=== PATIENT | female | born 1980 | race Hispanic/Latino ===

== ENCOUNTER 2025-05-14 19:40 | Inpatient (IN) | payer OTHER ==
[~2025-05-14] VITALS: Ht 157.5 cm; Wt 95.3 kg
[2025-05-14 20:16] LABS: BASOPHILS % 0.6 % (0.0-1.0); EOSINOPHILS # (AUTO) 0.2 (0.0-0.4); EOSINOPHILS % 2.8 % (0.0-6.0); HEMATOCRIT 42.7 % (34.2-44.1); HEMOGLOBIN 13.9 g/dL (12.0-16.0); LYMPHOCYTES # (AUTO) 2.1 (1.0-3.2); LYMPHOCYTES % 30.6 % (18.0-39.1); MEAN CORPUSCULAR HEMOGLOBIN 28.1 pg (28-32); MEAN CORPUSCULAR HGB CONC 32.6 g/dL (31-35); MEAN CORPUSCULAR VOLUME 86.3 fL (81-99); MONOCYTES # (AUTO) 0.5 (0.2-0.8); MONOCYTES % 7.4 % (4.4-11.3); NEUTROPHILS # (AUTO) 3.9 (2.1-6.9); PLATELET COUNT 307 x10e3/uL (140-360); RED BLOOD COUNT 4.95 x10e6/uL (3.6-5.1); RED CELL DISTRIBUTION WIDTH 13.1 % (11.7-14.4); WHITE BLOOD COUNT 6.73 x10e3/uL (4.8-10.8)
[2025-05-14] MEDS: ASPIRIN 81 MG CHEW TAB PO ONE (20:28)
[2025-05-14] MEDS: KETOROLAC TROMETHAMINE 30 MG/ML VIAL IV STA (20:28)
[2025-05-14 20:42] LABS: ALANINE AMINOTRANSFERASE 33 IU/L (0-55); ALBUMIN 4.2 g/dL (3.5-5.0); ALKALINE PHOSPHATASE 79 IU/L (40-150); ANION GAP 15.8 mmol/L (8-16); BILIRUBIN,TOTAL 0.4 mg/dL (0.2-1.2); BLOOD UREA NITROGEN 13 mg/dL (7-26); BUN/CREATININE RATIO 18 (6-25); CALCIUM 9.5 mg/dL (8.4-10.2); CARBON DIOXIDE 23 mmol/L (22-29); CHLORIDE 102 mmol/L (98-107); CREATINE KINASE 100 IU/L (29-168); CREATININE, SERUM 0.74 mg/dL (0.57-1.11); EST GLOMERULAR FILTRATION RATE 102 ML/MIN (>=60); GLUCOSE 168 mg/dL (74-118); POTASSIUM 3.8 mmol/L (3.5-5.1); SODIUM 137 mmol/L (136-145); TOTAL PROTEIN 8.3 g/dL (6.5-8.1)
[2025-05-14 20:48] LABS: TROPONIN I < 0.001 ng/mL (0-0.300)
[2025-05-14] MEDS ORDERED: IOPAMIDOL 370 MG/ML 100 ML INFUS..BTL INJ ONE (22:34)
[2025-05-14 22:52] VITALS: PULSE 78; RESP 18; TEMP 98.1
[2025-05-14] MEDS: SODIUM CHLORIDE 0.9% 1000ML 1,000 ML IV SCH (23:00)
[2025-05-14] MEDS ORDERED: GLIPIZIDE5 MG PO (23:30)
[2025-05-14] MEDS ORDERED: VALACYCLOVIR500 MG PO (23:30)
[2025-05-14] MEDS ORDERED: MOUNJARO5 MG/0.5 M SC (23:30)
[2025-05-14] MEDS ORDERED: VITAMIN D3 COM1 EACH PO (23:30)
[2025-05-14] MEDS ORDERED: TIZANIDINE HCL4 MG PO (23:30)
[2025-05-14 23:31] VITALS: BP 154/112; PULSE 86; RESP 18; TEMP 98.5; O2SAT 100
[2025-05-14 23:35] VITALS: BP 154/112; PULSE 86; RESP 18; TEMP 98.5; O2SAT 100
[2025-05-15] VITALS (9 sets, daily range): BP systolic 137–182; BP diastolic 70–98; PULSE 75–98; RESP 17–18; TEMP 97.7–98.6; O2SAT 96–100
[2025-05-15 05:39] LABS: BASOPHILS % 0.4 % (0.0-1.0); EOSINOPHILS # (AUTO) 0.2 (0.0-0.4); EOSINOPHILS % 2.5 % (0.0-6.0); HEMATOCRIT 39.3 % (34.2-44.1); HEMOGLOBIN 12.8 g/dL (12.0-16.0); LYMPHOCYTES # (AUTO) 2.1 (1.0-3.2); LYMPHOCYTES % 29.4 % (18.0-39.1); MEAN CORPUSCULAR HEMOGLOBIN 28.3 pg (28-32); MEAN CORPUSCULAR HGB CONC 32.6 g/dL (31-35); MEAN CORPUSCULAR VOLUME 86.8 fL (81-99); MONOCYTES # (AUTO) 0.6 (0.2-0.8); MONOCYTES % 8.2 % (4.4-11.3); NEUTROPHILS # (AUTO) 4.3 (2.1-6.9); NEUTROPHILS % 59.2 % (38.7-80.0); PLATELET COUNT 275 x10e3/uL (140-360); RED BLOOD COUNT 4.53 x10e6/uL (3.6-5.1); RED CELL DISTRIBUTION WIDTH 13.1 % (11.7-14.4); WHITE BLOOD COUNT 7.18 x10e3/uL (4.8-10.8)
[2025-05-15 05:53] LABS: ALBUMIN 3.5 g/dL (3.5-5.0); ALBUMIN/GLOBULIN RATIO 1.2 (0.8-2.0); ANION GAP 15.6 mmol/L (8-16); BILIRUBIN,TOTAL 0.5 mg/dL (0.2-1.2); CALCIUM 8.7 mg/dL (8.4-10.2); CREATININE, SERUM 0.65 mg/dL (0.57-1.11); POTASSIUM 3.6 mmol/L (3.5-5.1); TOTAL PROTEIN 6.4 g/dL (6.5-8.1)
[2025-05-15] MEDS: ONDANSETRON HCL INJ 2MG/ML 2ML 2 MG/ML VIAL IV PRN (09:31)
[2025-05-15] MEDS: Morphine 4mg INJECTION 4 MG/ML INJ IV PRN (09:31)
[2025-05-15] MEDS: KETOROLAC TROMETHAMINE 30 MG/ML VIAL IV PRN (10:35)
[2025-05-15] MEDS ORDERED: GADOBENATE DIMEGLUMINE 1 ML IV ONE (12:12)
[2025-05-16] VITALS (8 sets, daily range): BP systolic 139–195; BP diastolic 67–98; PULSE 77–95; RESP 18–20; TEMP 97.8–98.6; O2SAT 98–100
[2025-05-16 05:36] LABS: BASOPHILS % 0.6 % (0.0-1.0); EOSINOPHILS # (AUTO) 0.2 (0.0-0.4); EOSINOPHILS % 3.4 % (0.0-6.0); HEMATOCRIT 38.5 % (34.2-44.1); HEMOGLOBIN 12.4 g/dL (12.0-16.0); LYMPHOCYTES # (AUTO) 1.5 (1.0-3.2); LYMPHOCYTES % 27.8 % (18.0-39.1); MEAN CORPUSCULAR HEMOGLOBIN 28.6 pg (28-32); MEAN CORPUSCULAR HGB CONC 32.2 g/dL (31-35); MEAN CORPUSCULAR VOLUME 88.7 fL (81-99); MONOCYTES # (AUTO) 0.5 (0.2-0.8); MONOCYTES % 8.7 % (4.4-11.3); NEUTROPHILS # (AUTO) 3.1 (2.1-6.9); NEUTROPHILS % 59.1 % (38.7-80.0); PLATELET COUNT 258 x10e3/uL (140-360); RED BLOOD COUNT 4.34 x10e6/uL (3.6-5.1); RED CELL DISTRIBUTION WIDTH 12.9 % (11.7-14.4); WHITE BLOOD COUNT 5.29 x10e3/uL (4.8-10.8)
[2025-05-16 05:48] LABS: ALBUMIN 3.2 g/dL (3.5-5.0); ANION GAP 13.8 mmol/L (8-16); BILIRUBIN,TOTAL 0.4 mg/dL (0.2-1.2); CALCIUM 8.2 mg/dL (8.4-10.2); CREATININE, SERUM 0.65 mg/dL (0.57-1.11); MAGNESIUM 1.7 MG/DL (1.3-2.1); POTASSIUM 3.8 mmol/L (3.5-5.1); TOTAL PROTEIN 6.5 g/dL (6.5-8.1)
[2025-05-16 06:14] LABS: THYROID STIMULATING HORMONE 2.433 uIU/mL (0.350-4.940)
[2025-05-16] MEDS: MAGNESIUM SULF 1GRAM/DEXTROSE 100 ML IV ONE (13:33)
[2025-05-16] MEDS: HYDRALAZINE HCL 20 MG/ML VIAL IV PRN (16:55)
[2025-05-16] MEDS ORDERED: TIZANIDINE HCL 4 MG TAB PO PRN (19:45)
[2025-05-16] MEDS: AMLODIPINE BESYLATE 5 MG TAB PO ONE (21:19)
[2025-05-17] VITALS (7 sets, daily range): BP systolic 112–152; BP diastolic 63–90; PULSE 81–91; RESP 18–20; TEMP 97.7–98.3; O2SAT 99–100
[2025-05-17] MEDS: GLIPIZIDE 5 MG TAB PO SCH (09:00)
[2025-05-17] MEDS: MULTIVITAMINS/MINERALS TAB PO SCH (10:01)
[2025-05-17] MEDS: AMLODIPINE BESYLATE 5 MG TAB PO SCH (10:02)
[2025-05-17] MEDS: DEXAMETHASONE 4 MG TAB PO SCH (23:35)
[2025-05-18] VITALS: BP 145/80; PULSE 82; RESP 18; TEMP 98.6; O2SAT 98
[2025-05-18 04:00] VITALS: BP 152/75; PULSE 86; RESP 18; TEMP 98.3; O2SAT 100
[2025-05-18 06:59] LABS: CALCIUM 8.7 mg/dL (8.4-10.2); CREATININE, SERUM 0.69 mg/dL (0.57-1.11); MAGNESIUM 1.7 MG/DL (1.3-2.1)
[2025-05-18 08:00] VITALS: BP 178/100; PULSE 97; RESP 18; TEMP 97.3; O2SAT 99
[2025-05-18 09:27] VITALS: BP 178/100; PULSE 97; RESP 18; TEMP 97.3; O2SAT 99
[2025-05-18] MEDS: MAGNESIUM SULF 1GRAM/DEXTROSE 100 ML IV ONE (11:55)
[2025-05-18 12:00] VITALS: BP 155/104; PULSE 103; RESP 20; TEMP 98.7; O2SAT 100
[2025-05-18] MEDS: HYDROMORPHONE 1MG/1ML INJ IV ONE (12:44)
[2025-05-18] MEDS ORDERED: AMLODIPINE BESY10 MG PO (15:34)
[2025-05-18] MEDS ORDERED: KETOROLAC TROMETHAMINE IV (15:34)
[2025-05-18] MEDS ORDERED: DEXAMETHASO4 MG/1 ML IV (15:34)
[2025-05-18] MEDS ORDERED: HYDRALAZIN20 MG/1 ML IV (15:34)
[2025-05-18] MEDS ORDERED: ONDANSETRON4 MG/2 M1 IV (15:34)
[2025-05-18] MEDS ORDERED: SODIUM CHLORIDE 0.9% IV (15:34)
[2025-05-18] MEDS ORDERED: DEXAMETHASONE SOD PHOS INJ 4 MG/ML SDV IV SCH (18:00)
== END 2025-05-18 16:43 | disposition other institution (70) | DRG 543 ==
LOC: ER 19:50 → ERHOLD 22:33 → MED/SURG 23:11 → OBSVTOIN 05-15 14:15
PROVIDERS: ADMIT Internal Medicine; ATTEND Internal Medicine
DX: C79.51 Secondary malignant neoplasm of bone (principal); C77.9 Secondary and unspecified malignant neoplasm of lymph node, unspecified; G99.2 Myelopathy in diseases classified elsewhere; E83.42 Hypomagnesemia; K76.0 Fatty (change of) liver, not elsewhere classified; E78.00 Pure hypercholesterolemia, unspecified; E11.9 Type 2 diabetes mellitus without complications; C50.912 Malignant neoplasm of unspecified site of left female breast; Z90.13 Acquired absence of bilateral breasts and nipples; Z90.49 Acquired absence of other specified parts of digestive tract; Z79.85 Long-term (current) use of injectable non-insulin antidiabetic drugs; Z79.84 Long term (current) use of oral hypoglycemic drugs; Z92.3 Personal history of irradiation; Z92.21 Personal history of antineoplastic chemotherapy
CPT/HCPCS: 36415; 71260; 72157; 80048; 80053; 81025; 82550; 82948; 83036; 83690; 83735; 83880; 84100; 84443; 84484; 85025; 93005; 99284; G0378; J0360; J1171; J1885; J2270; J2405; J3475; J7030; Q9967